=== PATIENT | male | born 1965 | race Caucasian/White ===

== ENCOUNTER 2018-10-25 08:42 | Inpatient (IN) | payer OTHER ==
[2018-10-25 09:30] LABS: ADD MAN DIFF? NO
[2018-10-25] MEDS: ONDANSETRON 4 MG INJ IV (09:31)
[2018-10-25] MEDS: HYDROmorphONE 0.5 MG/0.5 ML SYG IV (09:32)
[2018-10-25] MEDS: CEFEPIME 2GM/50 ML (PMX) 50 ML IVPB (09:33)
[2018-10-25 09:37] LABS: BASOPHILS % 0.2 % (0.0-2.0); HEMATOCRIT 45.5 % (42.0-52.0); HEMOGLOBIN 15.5 g/dl (14.0-18.0); LYMPHOCYTES # 1.6 10^3/ul (0.8-2.9); LYMPHOCYTES % 7.8 % (15.0-51.0); MEAN CORPUSCULAR HEMOGLOBIN 30.6 pg (29.0-33.0); MEAN CORPUSCULAR HGB CONC 34.1 g/dl (32.0-37.0); MEAN CORPUSCULAR VOLUME 89.9 fl (82.0-101.0); MEAN PLATELET VOLUME 9.7 fl (7.4-10.4); MONOCYTE # 1.5 10^3/ul (0.3-0.9); MONOCYTES % 7.1 % (0.0-11.0); NEUTROPHIL # 17.2 10^3/ul (1.6-7.5); NEUTROPHILS % 83.5 % (39.0-77.0); PLATELET COUNT 221 10^3/UL (140-415); POSITIVE DIFF @See below; RED BLOOD COUNT 5.06 10^6/ul (4.70-6.10); RED CELL DISTRIBUTION WIDTH 13.2 % (11.5-14.5)
[2018-10-25 09:37] LABS: WHITE BLOOD COUNT 20.7 10^3/ul (4.8-10.8)
[2018-10-25 09:56] LABS: ANION GAP 5 (5-13); BLOOD UREA NITROGEN 14 mg/dl (7-20); CALCIUM 9.2 mg/dl (8.4-10.2); CARBON DIOXIDE 27 mmol/L (21-31); CHLORIDE 102 mmol/L (97-110); CREATININE 0.72 mg/dl (0.61-1.24); Estimated GFR > 60 mL/min (>60); GLUCOSE 97 mg/dl (70-220); INR 1.05; POTASSIUM 4.7 mmol/L (3.5-5.1); PROTIME 13.8 Sec (11.9-14.9); PT RATIO 1.1; SODIUM 134 mmol/L (135-144)
[2018-10-25 09:57] LABS: PARTIAL THROMBOPLASTIN TIME 34.5 Sec (23.0-35.0)
[2018-10-25 10:04] LABS: ANISOCYTOSIS 1+ (0-0); BAND NEUTROPHILS #M 1.8 10^3/ul (0.0-0.6); BAND NEUTROPHILS % (M) 9 % (0-4); BURR CELLS 1+ (0-0); GIANT THROMBO% (M) 1 % (0-0); LYMPHOCYTES #M 0.6 10^3/ul (0.8-2.9); LYMPHOCYTES % (M) 3 % (15-51); MICROCYTOSIS 1+ (0-0); MONOCYTE #M 1.4 10^3/ul (0.3-0.9); MONOCYTES % (M) 7 % (0-11); PLATELET ESTIMATE NORMAL; POIKILOCYTOSIS 1+ (0-0); POLYCHROMASIA 1+ (0-0); REACTIVE LYMPHOCYTES #M 0.2 10^3/ul (0.0-0.0); REACTIVE LYMPHOCYTES% (M) 1 % (0-0); SEG NEUT #M 16.9 10^3/ul (1.6-7.5); SEGMENTED NEUTROPHILS (M) % 80 % (39-77); SMUDGE%M 2 % (0-0)
[2018-10-25] MEDS: VANCOMYCIN 1 GM (PMX) 250 ML IVPB (10:54)
[2018-10-25] MEDS ORDERED: MAGNESIUM HYDROXIDE 30ML CUP PO (11:30)
[2018-10-25] MEDS ORDERED: NACL 0.9% 3 ML SYG IV (11:30)
[2018-10-25] MEDS ORDERED: ACETAMINOPHEN 325 MG TAB PO (11:30)
[2018-10-25] MEDS ORDERED: VANCOMYCIN IV PER PHARMACY XX (11:30)
[2018-10-25] MEDS ORDERED: BISACODYL 10 MG SUPP PR (11:30)
[2018-10-25] MEDS ORDERED: DOCUSATE SODIUM 100 MG CAP PO (11:30)
[2018-10-25] MEDS ORDERED: ONDANSETRON 4 MG INJ IV ×2 (11:30)
[2018-10-25] MEDS: morphine 2 MG INJ IV (17:29)
[2018-10-25] MEDS: VANCOMYCIN 1 GM in 250 ML IVPB (17:29)
[2018-10-25] MEDS: HEPARIN 5,000 UNIT/1 ML VIAL SC (21:25)
[2018-10-26] MEDS: VANCOMYCIN 1 GM in 250 ML IVPB ×2 (05:50→17:46)
[2018-10-26] MEDS: HEPARIN 5,000 UNIT/1 ML VIAL SC ×2 (08:08→20:01)
[2018-10-26 08:46] LABS: ADD MAN DIFF? NO
[2018-10-26 08:52] LABS: ABNORMAL IP MESSAGE 1; BASOPHILS % 0.2 % (0.0-2.0); EOSINOPHILS # 0.1 10^3/ul (0.0-0.5); EOSINOPHILS % 0.4 % (0.0-7.0); HEMOGLOBIN 15.1 g/dl (14.0-18.0); LYMPHOCYTES # 1.5 10^3/ul (0.8-2.9); LYMPHOCYTES % 9.1 % (15.0-51.0); MEAN CORPUSCULAR HEMOGLOBIN 31.2 pg (29.0-33.0); MEAN CORPUSCULAR HGB CONC 34.3 g/dl (32.0-37.0); MEAN CORPUSCULAR VOLUME 90.9 fl (82.0-101.0); MEAN PLATELET VOLUME 9.9 fl (7.4-10.4); MONOCYTE # 1.7 10^3/ul (0.3-0.9); MONOCYTES % 10.2 % (0.0-11.0); NEUTROPHIL # 13.4 10^3/ul (1.6-7.5); NEUTROPHILS % 78.9 % (39.0-77.0); PLATELET COUNT 200 10^3/UL (140-415); POSITIVE DIFF @See below; RED BLOOD COUNT 4.84 10^6/ul (4.70-6.10); RED CELL DISTRIBUTION WIDTH 13.2 % (11.5-14.5)
[2018-10-26 09:06] LABS: HEMOGLOBIN A1C 5.4 % (0-5.9)
[2018-10-26 09:16] LABS: ALANINE AMINOTRANSFERASE 55 IU/L (13-69); ALBUMIN 2.9 g/dl (3.3-4.9); ALBUMIN/GLOBULIN RATIO 0.93; ALKALINE PHOSPHATASE 58 IU/L (42-121); ANION GAP 4 (5-13); ASPARTATE AMINO TRANSFERASE 36 IU/L (15-46); BILIRUBIN,INDIRECT 0.7 mg/dl (0-1.1); BILIRUBIN,TOTAL 0.7 mg/dl (0.2-1.3); BLOOD UREA NITROGEN 14 mg/dl (7-20); CALCIUM 8.9 mg/dl (8.4-10.2); CARBON DIOXIDE 30 mmol/L (21-31); CHLORIDE 102 mmol/L (97-110); CHOL/HDL RATIO 4.7 RATIO; CHOLESTEROL 113 mg/dl (100-200); Estimated GFR > 60 mL/min (>60); GLUCOSE 111 mg/dl (70-220); HDL CHOLESTEROL 24 mg/dl (28-71); LDL CHOLESTEROL,CALCULATED 70 mg/dl; MAGNESIUM 2.1 mg/dl (1.7-2.5); PHOSPHORUS 2.9 mg/dl (2.5-4.9); POTASSIUM 4.5 mmol/L (3.5-5.1); SODIUM 136 mmol/L (135-144); TRIGLYCERIDES 96 mg/dl (0-149)
[2018-10-26 12:03] LABS: FREE THYROXINE INDEX (Calc) 2.59 ug/ml (0.65-3.89); T3 UPTAKE 33.7 % (23.5-40.5); T4 (THYROXINE) 7.7 ug/dl (5.5-11.0)
[2018-10-26] MEDS: HYDROCODONE/APAP (5/325) TAB PO ×2 (13:10→19:59)
[2018-10-26] MEDS: ACETAMINOPHEN 325 MG TAB PO ×2 (14:10→22:01)
[2018-10-26] MEDS: NICOTINE (14 MG/24 HR) PATCH TRANSDERM (20:00)
[2018-10-27] MEDS: VANCOMYCIN 1 GM in 250 ML IVPB (05:11)
[2018-10-27] MEDS: ACETAMINOPHEN 325 MG TAB PO ×2 (05:12→15:18)
[2018-10-27] MEDS: HEPARIN 5,000 UNIT/1 ML VIAL SC (08:47)
[2018-10-27] MEDS: NICOTINE (14 MG/24 HR) PATCH TRANSDERM (08:52)
== END 2018-10-27 17:23 | disposition home or self-care (01) | DRG 603 ==
LOC: E/R 08:42 → PP2 11:18
DX: L03.115 Cellulitis of right lower limb (principal); R65.10 Systemic inflammatory response syndrome (SIRS) of non-infectious origin without acute organ dysfunction; Z59.0 Homelessness; Z72.0 Tobacco use; I73.9 Peripheral vascular disease, unspecified; D72.829 Elevated white blood cell count, unspecified; F15.21 Other stimulant dependence, in remission; R60.0 Localized edema
CPT/HCPCS: 36415; 71045; 80048; 80053; 80061; 80307; 83036; 83735; 84100; 84436; 84443; 84479; 85025; 85610; 85730; 87040-91; 93005; 93922; 93971; 96365; 96367; 96375; 99285-25